=== PATIENT | male | born 1945 | race Caucasian/White ===

== ENCOUNTER → 2016-10-30 | Outpatient (CLI) | payer OTHER ==
[2016-10-30 11:11] LABS: LDL CHOLESTEROL,CALCULATED 109.4 mg/dL
[2016-10-30 11:12] LABS: BILIRUBIN,TOTAL 0.9 mg/dL (0.3-1.2); BUN/CREATININE RATIO 16.66 (6-20); CALCIUM 10.7 mg/dL (8.7-10.7); CREATININE 0.9 mg/dL (0.70-1.50); POTASSIUM 4.4 meq/L (3.8-5.2); TOTAL PROTEIN 7.3 g/dL (6.1-8.0)
[2016-10-30 11:15] LABS: HEMOGLOBIN A1C 7.39 % (4.2-6.0); MEAN BLOOD GLUCOSE (CALC) 160.087 mg/dL
[2016-10-30 11:17] LABS: CREATININE, URINE 62.7 MG/DL (15-500)
== END ==
LOC: LAB 10:11
PROVIDERS: ATTEND Internal Medicine
DX: E11.9 Type 2 diabetes mellitus without complications (principal); E78.5 Hyperlipidemia, unspecified; I10 Essential (primary) hypertension
CPT/HCPCS: 36415; 80053; 80061; 82043; 82550; 83036

== ENCOUNTER → 2016-11-01 | Outpatient (CLI) | payer OTHER | LOC: MMPC 11:11 | PROVIDERS: ATTEND Internal Medicine | DX: E11.9 Type 2 diabetes mellitus without complications (principal); E78.5 Hyperlipidemia, unspecified | CPT/HCPCS: 99213; G0463 ==

== ENCOUNTER → 2016-11-14 | Outpatient (CLI) | payer OTHER | LOC: MMPC 11:11 | PROVIDERS: ATTEND Internal Medicine | DX: M81.0 Age-related osteoporosis without current pathological fracture (principal) | CPT/HCPCS: G0463; J0897 ==